=== PATIENT | male | born 1990 | race Two or more races ===

== ENCOUNTER 2018-12-20 16:05 | Emergency (ER) | payer OTHER ==
[2018-12-20] MEDS ORDERED: B COMPLEX # 11 EACH (16:40)
== END 2018-12-20 18:12 | disposition home or self-care (01) ==
LOC: ER 16:05
DX: R00.2 Palpitations (principal); M79.622 Pain in left upper arm

== ENCOUNTER 2020-07-28 12:59 | Emergency (ER) | payer OTHER ==
[~2020-07-28] VITALS: Ht 170.2 cm; Wt 77.1 kg
[~2020-07-28 12:59] MED LIST: B COMPLEX # 11 EACH
== END 2020-07-28 16:22 | disposition home or self-care (01) ==
LOC: ER 12:59
DX: S80.11XS Contusion of right lower leg, sequela (principal); Z03.818 Encounter for observation for suspected exposure to other biological agents ruled out; X58.XXXS Exposure to other specified factors, sequela

== ENCOUNTER 2022-02-22 14:01 | Emergency (ER) | payer OTHER ==
[~2022-02-22] VITALS: Ht 170.2 cm; Wt 78.0 kg
[2022-02-22] MEDS ORDERED: BUTALB-ACETAMI1 EACH PO (17:46)
== END 2022-02-22 18:11 | disposition home or self-care (01) ==
LOC: ER 14:01
DX: R51.9 Headache, unspecified (principal)